=== PATIENT | female | born 1980 | race Two or more races ===

== ENCOUNTER 2020-03-11 20:34 | Emergency (ER) | payer MEDICAID ==
[~2020-03-11] VITALS: Ht 162.6 cm; Wt 68.0 kg
[2020-03-11] MEDS ORDERED: Metoclopramide 10mg/2ml Inj IVP ONE (21:15)
[2020-03-11] MEDS ORDERED: Ketorolac 30mg Inj IV ONE (21:15)
[2020-03-11] MEDS ORDERED: Omnipaque-300 100ml vial INJ PRN (21:15)
[2020-03-11] MEDS ORDERED: DiphenhydrAMINE 50mg/ml Inj IVP ONE (21:15)
[2020-03-11 21:20] VITALS: BP 127/75
--- NOTE | 2020-03-11 21:20 | NUR ---
ED Nurse Note: Patient walked into ED for c/o L flank pain that radiates down her leg x 2 days. She reports nausea, denies vomiting, diarrhea. She also denies chest pain, cough, SOB. She is aaox4, breathing is normal and unlabored. She is ambulatory with steady gait.
--- NOTE | 2020-03-11 21:31 | Emergency Room Report ---
History of Present Illness General Chief Complaint: Pain Source: Patient Present Illness HPI Patient presents with severe left flank pain radiating to her leg and groin area. It began 2 days ago. She fell asleep in front of a heater and then went outside. She had sex after this and this was painful but it did not begin during sexual activity. Her menstruation just began now. She denies fevers or chills. She is post tubal ligation and does not believe she is at this time. Her menstruation is now irregular after the tubal ligation. She moved her bowels normally yesterday. She denies any fevers or chills. She has had a UTI but has been a long time. She rates the pain 6/10. It seems to radiate both up the torso and down the leg. She is unaware of any Covid positive contacts. She developed some ulcers underneath her tongue. She has had some memory loss for a year. 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 Patient History Past Medical History: see triage record Past Surgical History: other - Status post tubal ligation Social History: Reports: smoking; Denies: alcohol use, drug use Social History Narrative unemployed and lives with boyfriend Last Menstrual Period: 03/11/20 Now: No Reviewed Nursing Documentation: PMH: Agreed; PSxH: Agreed Nursing Documentation-PMH Past Medical History: No Stated History Review of Systems All Other Systems: negative except mentioned in HPI Physical Exam Vital Signs Date Time Temp Pulse Resp B/P (MAP) Pulse Ox O2 Delivery O2 Flow Rate FiO2 03/11/20 20:40 98.8 110 16 127/75 (92) 97 Room Air Sp02 EP Interpretation: reviewed, normal General Appearance: well appearing, no apparent distress, GCS 15 Head: normocephalic Eyes: bilateral eye normal inspection ENT: moist mucus membranes, other - apthous ulcer under tongue Neck: supple Respiratory: lungs clear, normal breath sounds Cardiovascular #1: regular rate, rhythm Cardiovascular #2: 2+ radial (R) Gastrointestinal: normal inspection, normal bowel sounds, no mass, non- distended, no guarding, no rebound, tenderness - R flank area Musculoskeletal: normal range of motion, gait/station normal, other - SLR negative, no paraspinous tenderness Neurologic: alert, oriented x3, grossly normal Psychiatric: mood/affect normal Skin: no rash Medical Decision Making Diagnostic Impression: Primary Impression: Right flank pain ER Course Patient presents with 2 days of right flank pain. Differential includes pyelonephritis, renal stone, muscle strain, UTI, COVID-19 amongst others. Likelihood of extremely low as she is post tubal ligation. Evaluation with labs and CT of the abdomen. Patient treated with IV hydration, Reglan, Benadryl and Toradol. Labs unremarkable. Urine with blood from menses. Ricardo greatly improved and patient sleeping. States pain now 05/26. Final disposition awaiting CT scan results. Signed out to Dr. Sainz. Laboratory Tests Test 03/11/20 21:20 03/11/20 21:30 White Blood Count 5.6 K/UL (4.8-10.8) Red Blood Count 4.29 M/UL (4.20-5.40) Hemoglobin 12.8 G/DL (12.0-16.0) Hematocrit 37.7 % (37.0-47.0) Mean Corpuscular Volume 88 FL (80-99) Mean Corpuscular Hemoglobin 29.9 PG (27.0-31.0) Mean Corpuscular Hemoglobin Concent 34.0 G/DL (32.0-36.0) Red Cell Distribution Width 14.8 % (11.6-14.8) Platelet Count 238 K/UL (150-450) Mean Platelet Volume 8.0 FL (6.5-10.1) Neutrophils (%) (Auto) 79.2 % (45.0-75.0) H Lymphocytes (%) (Auto) 10.2 % (20.0-45.0) L Monocytes (%) (Auto) 9.8 % (1.0-10.0) Eosinophils (%) (Auto) 0.0 % (0.0-3.0) Basophils (%) (Auto) 0.8 % (0.0-2.0) Prothrombin Time 10.7 SEC (9.30-11.50) Prothrombin Time INR 1.0 (0.9-1.1) Activated Partial Thromboplast Time 29 SEC (23-33) Sodium Level 138 MMOL/L (136-145) Potassium Level 3.8 MMOL/L (3.5-5.1) Chloride Level 102 MMOL/L (98-107) Carbon Dioxide Level 31 MMOL/L (21-32) Anion Gap 5 mmol/L (5-15) Blood Urea Nitrogen 16 mg/dL (7-18) Creatinine 0.8 MG/DL (0.55-1.30) Estimated Glomerular Filtration Rate > 60 mL/min (>60) Glucose Level 96 MG/DL (74-106) Calcium Level 8.0 MG/DL (8.5-10.1) L Total Bilirubin 0.1 MG/DL (0.2-1.0) L Aspartate Amino Transferase (AST) 25 U/L (15-37) Alanine Aminotransferase (ALT) 94 U/L (12-78) H Alkaline Phosphatase 68 U/L (46-116) Total Protein 7.4 G/DL (6.4-8.2) Albumin 3.3 G/DL (3.4-5.0) L Globulin 4.1 g/dL Albumin/Globulin Ratio 0.8 (1.0-2.7) L Lipase 166 U/L (73-393) Urine Color Pale yellow Urine Appearance Slightly cloudy Urine pH 5 (4.5-8.0) Urine Specific [place] 1.025 (1.005-1.035) Urine Protein 2+ (NEGATIVE) H Urine Glucose (UA) Negative (NEGATIVE) Urine Ketones 1+ (NEGATIVE) H Urine Blood 5+ (NEGATIVE) H Urine Nitrite Negative (NEGATIVE) Urine Bilirubin Negative (NEGATIVE) Urine Urobilinogen Normal MG/DL (0.0-1.0) Urine Leukocyte Esterase 1+ (NEGATIVE) H Urine RBC 60-80 /HPF (0 - 2) H Urine WBC 5-10 /HPF (0 - 2) H Urine Squamous Epithelial Cells Occasional /LPF Urine Bacteria Occasional /HPF (NONE) Urine Mucus Occasional /LPF Urine HCG, Qualitative Negative (NEGATIVE) Last Vital Signs Date Time Temp Pulse Resp B/P (MAP) Pulse Ox O2 Delivery O2 Flow Rate FiO2 03/11/20 23:25 98.8 89 16 130/77 98 Room Air Status: improved Disposition: HOME, SELF-CARE Condition: Improved Scripts Docusate Sodium* (COLACE*) 100 Mg Capsule 100 MG ORAL THREE TIMES A DAY, #30 CAP Prov: Jovon Sainz MD 03/11/20 Cephalexin* (KEFLEX*) 500 Mg Capsule 500 MG ORAL EVERY 6 HOURS, #28 CAP Prov: Jovon Sainz MD 03/11/20 Ibuprofen* (MOTRIN*) 600 Mg Tablet 600 MG ORAL Q6H PRN for FOR PAIN, #16 TAB 0 Refills Prov: Dalton Hayes MD 03/11/20 Referrals: NOT CHOSEN [facility]/,REFERRING (PCP) Dalton Hayes MD Mar 11, 2020 21:30
[2020-03-11 21:41] LABS: APPEARANCE,URINE SLIGHTLY CLOUDY; BILIRUBIN, URINE NEGATIVE (NEGATIVE); GLUCOSE, URINE (UA) NEGATIVE (NEGATIVE); KETONES,URINE 1+ (NEGATIVE); LEUKOCYTE ESTERASE ,URINE 1+ (NEGATIVE); NITRITE,URINE NEGATIVE (NEGATIVE); PH,URINE 5 (4.5-8.0); PROTEIN,URINE 2+ (NEGATIVE); UROBILINOGEN,URINE NORMAL MG/DL (0.0-1.0)
[2020-03-11 21:41] LABS: BASOPHILS % (AUTO) 0.8 % (0.0-2.0); HEMATOCRIT 37.7 % (37.0-47.0); HEMOGLOBIN 12.8 G/DL (12.0-16.0); LYMPHOCYTES % (AUTO) 10.2 % (20.0-45.0); MEAN CORPUSCULAR VOLUME 88 FL (80-99); MONOCYTES % (AUTO) 9.8 % (1.0-10.0); NEUTROPHILS % (AUTO) 79.2 % (45.0-75.0); PLATELET COUNT 238 K/UL (150-450); RED BLOOD COUNT 4.29 M/UL (4.20-5.40); RED CELL DISTRIBUTION WIDTH 14.8 % (11.6-14.8); WHITE BLOOD COUNT 5.6 K/UL (4.8-10.8)
[2020-03-11 21:44] LABS: COLOR,URINE PALE YELLOW
[2020-03-11 21:52] LABS: ANION GAP 5 mmol/L (5-15); BLOOD UREA NITROGEN 16 mg/dL (7-18); CARBON DIOXIDE 31 MMOL/L (21-32); CHLORIDE 102 MMOL/L (98-107); CREATININE 0.8 MG/DL (0.55-1.30); POTASSIUM 3.8 MMOL/L (3.5-5.1); SODIUM 138 MMOL/L (136-145)
[2020-03-11 21:57] LABS: ALANINE AMINOTRANSFERASE 94 U/L (12-78); ALBUMIN 3.3 G/DL (3.4-5.0); ALBUMIN/GLOBULIN RATIO 0.8 (1.0-2.7); ALKALINE PHOSPHATASE 68 U/L (46-116); ASPARTATE AMINO TRANSFERASE 25 U/L (15-37); BILIRUBIN,TOTAL 0.1 MG/DL (0.2-1.0)
[2020-03-11] MEDS ORDERED: TRAMADOL HCL50 MG ORAL (22:41)
[2020-03-11] MEDS ORDERED: IBUPROFEN600 M1 ORAL (22:41)
--- NOTE | 2020-03-11 22:43 | Diagnostic Imaging Report ---
EXAM: CT Abdomen and Pelvis With Intravenous Contrast CLINICAL HISTORY: ABD PAIN Technologist notes: Patient presents with severe left flank pain radiating to her leg and groin area. It began 2 days ago. TECHNIQUE: Axial computed tomography images of the abdomen and pelvis with intravenous contrast. CTDI is 6.0 mGy and DLP is 309.5 mGy-cm. One or more of the following dose reduction techniques were used: automated exposure control, adjustment of the mA and/or kV according to patient size, use of iterative reconstruction technique. COMPARISON: No relevant prior studies available. FINDINGS: Lung bases: Several nonspecific pleural-based left lower lobe pulmonary nodules are identified measuring up to 4 mm (4: 8). No effusions or focal consolidation. ABDOMEN: Liver: 19 mm right hepatic lobe cyst (8: 36). Course right hepatic lobe calcification, likely sequela of prior infection. The portal veins are patent. Gallbladder and bile ducts: Unremarkable. No calcified stones. No ductal dilation. Pancreas: Unremarkable. No ductal dilation. Spleen: Medial splenule. Calcification in the spleen likely sequela of prior granulomatous disease. Adrenals: Unremarkable. No mass. Kidneys and ureters: Several subcentimeter hypoattenuating lesions are identified in the left kidney, too small to characterize but likely cysts. No hydronephrosis. No definite urolithiasis. No hydroureter. Stomach and bowel: Unremarkable. No obstruction. No mucosal thickening. PELVIS: Appendix: Normal appendix (4: 51). Bladder: Decompressed urinary bladder but the wall appears thickened. Reproductive: Unremarkable as visualized. The ovaries are normal in size. Physiological left ovarian follicle (4: 56). ABDOMEN and PELVIS: Intraperitoneal space: Unremarkable. No free air. No significant fluid collection. Bones/joints: No acute fracture. No dislocation. L4-L5 degenerative disc disease. Soft tissues: Unremarkable. Vasculature: Unremarkable. No abdominal aortic aneurysm. Lymph nodes: Several enlarged right external iliac and inguinal lymph nodes are identified, right greater than left, nonspecific but possibly reactive. Right external iliac node measures up to 11 mm. Adjacent subcutaneous inflammatory changes are identified (4: 76, oconnor images). IMPRESSION: 1. The urinary bladder wall appears thickened despite being decompressed. Correlate for cystitis. 2. Enlarged bilateral inguinal lymph nodes (right greater than left) with adjacent subcutaneous inflammatory changes. Correlate for inguinal lymphadenitis.
[2020-03-11] MEDS ORDERED: COLACE100 MG ORAL (23:18)
[2020-03-11] MEDS ORDERED: CEPHALEXIN500 MG ORAL (23:18)
--- NOTE | 2020-03-11 23:24 | NUR ---
ER DISCHARGE NOTE: Patient is cleared to be discharged per ERMD, pt is aox4, on room air, with stable vital signs. pt was given dc and prescription instructions, pt was able to verbalize understanding, pt id band and iv site removed without complications. pt is able to ambulate with steady gait. pt took all belongings.
[2020-03-11 23:25] VITALS: BP 130/77
== END 2020-03-11 23:25 | disposition home or self-care (01) ==
LOC: EMR 21:01
DX: R10.9 Unspecified abdominal pain (principal); F17.200 Nicotine dependence, unspecified, uncomplicated; Z88.6 Allergy status to analgesic agent; Z88.8 Allergy status to other drugs, medicaments and biological substances
CPT/HCPCS: 36415; 74177; 80053; 81003; 81025; 83690; 85025; 85610; 85730; 96361; 96374; 96375; J1200; J1885; J2765; Q9965; Z7502; 99284